=== PATIENT | female | born 1975 | race Asian ===

== ENCOUNTER 2016-03-28 09:53 | Emergency (ER) | payer OTHER ==
[~2016-03-28] VITALS: Ht 149.9 cm; Wt 69.9 kg
[~2016-03-28 09:53] MED LIST: ZOFRAN8 MG OR
[2016-03-28 10:26] LABS: PLATELET COUNT 248 K/uL (152-353)
[2016-03-28 10:46] LABS: SODIUM 132 mmol/L (136-145)
[2016-03-28] MEDS ORDERED: KETO10TA34 PO (11:02)
== END 2016-03-28 11:09 | disposition home or self-care (01) ==
LOC: ED 09:53
DX: M79.1 Myalgia (principal)
CPT/HCPCS: 36415; 80053; 81000; 85027; 87081; 87804; 87880; 99283

== ENCOUNTER 2016-08-19 05:45 | Emergency (ER) | payer OTHER ==
[~2016-08-19] VITALS: Ht 167.6 cm; Wt 81.6 kg
[~2016-08-19 05:45] MED LIST changes: +KETO10TA34 PO
== END 2016-08-19 06:52 | disposition home or self-care (01) ==
LOC: ED 05:45
DX: R11.2 Nausea with vomiting, unspecified (principal); R19.7 Diarrhea, unspecified
CPT/HCPCS: 99282

== ENCOUNTER 2016-12-01 05:05 | Emergency (ER) | payer OTHER ==
[~2016-12-01] VITALS: Ht 149.9 cm; Wt 68.0 kg
== END 2016-12-01 05:57 | disposition home or self-care (01) ==
LOC: ED 05:05
DX: M79.604 Pain in right leg (principal)
CPT/HCPCS: 99281

== ENCOUNTER 2018-04-22 11:10 | Emergency (ER) | payer OTHER ==
[~2018-04-22] VITALS: Ht 149.9 cm; Wt 61.2 kg
[2018-04-22 12:00] VITALS: BP 152/87; TEMP 98
== END 2018-04-22 12:00 | disposition home or self-care (01) ==
LOC: ED 11:10
DX: K52.9 Noninfective gastroenteritis and colitis, unspecified (principal)
CPT/HCPCS: 99282

== ENCOUNTER 2021-10-23 07:55 | Emergency (ER) | payer OTHER ==
[~2021-10-23] VITALS: Ht 149.9 cm; Wt 61.2 kg
[2021-10-23 07:55] VITALS: TEMP 98
[2021-10-23 08:40] VITALS: BP 148/82
== END 2021-10-23 08:40 | disposition home or self-care (01) ==
LOC: ED 07:55
DX: H00.014 Hordeolum externum left upper eyelid (principal); H01.004 Unspecified blepharitis left upper eyelid
CPT/HCPCS: 99283

== ENCOUNTER 2021-11-09 08:09 | Emergency (ER) | payer OTHER ==
[~2021-11-09] VITALS: Ht 149.9 cm; Wt 61.2 kg
[2021-11-09 08:34] LABS: PLATELET COUNT 253 K/uL (152-353)
[2021-11-09 08:42] LABS: POTASSIUM 3.8 mmol/L (3.6-5.2)
[2021-11-09 09:46] VITALS: BP 152/77; TEMP 97.5
== END 2021-11-09 09:47 | disposition home or self-care (01) ==
LOC: ED 08:09
PROVIDERS: Emergency Medicine
DX: J11.1 Influenza due to unidentified influenza virus with other respiratory manifestations (principal); F17.210 Nicotine dependence, cigarettes, uncomplicated; Z20.822 Contact with and (suspected) exposure to COVID-19
CPT/HCPCS: 80048; 84484; 85027; 87502; 87635; 93005; 96372; 99283; J1885; U0003

== ENCOUNTER 2021-11-09 15:22 | Emergency (ER) | payer OTHER ==
[~2021-11-09] VITALS: Ht 149.9 cm; Wt 61.2 kg
[2021-11-09 15:28] VITALS: TEMP 96.8
[2021-11-09 17:30] VITALS: BP 145/65
[2021-11-09 17:50] LABS: PLATELET COUNT 246 K/uL (152-353)
[2021-11-09 18:05] LABS: PARTIAL THROMBOPLASTIN TIME 25.1 SECONDS (24.5-33.6)
== END 2021-11-09 18:40 | disposition left against medical advice (07) ==
LOC: ED 15:22
PROVIDERS: Emergency Medicine
DX: K92.2 Gastrointestinal hemorrhage, unspecified (principal); Z53.29 Procedure and treatment not carried out because of patient's decision for other reasons
CPT/HCPCS: 82272; 85027; 85610; 85730; 99283

== ENCOUNTER 2021-12-18 08:04 | Emergency (ER) | payer OTHER ==
[~2021-12-18] VITALS: Ht 149.9 cm; Wt 61.2 kg
[2021-12-18 09:56] VITALS: BP 133/62; TEMP 98
== END 2021-12-18 09:57 | disposition home or self-care (01) ==
LOC: ED 08:04
DX: J10.1 Influenza due to other identified influenza virus with other respiratory manifestations (principal); Z20.822 Contact with and (suspected) exposure to COVID-19; F17.210 Nicotine dependence, cigarettes, uncomplicated
CPT/HCPCS: 87502; 87635; 87651; 99283; U0003

== ENCOUNTER 2022-04-28 05:03 | Emergency (ER) | payer OTHER ==
[~2022-04-28] VITALS: Ht 149.9 cm; Wt 61.2 kg
[2022-04-28 05:10] VITALS: TEMP 98
[2022-04-28 06:00] LABS: PLATELET COUNT 162 K/uL (152-353)
[2022-04-28 06:08] LABS: POTASSIUM 3.9 mmol/L (3.6-5.2)
[2022-04-28 07:22] VITALS: BP 146/86
== END 2022-04-28 07:22 | disposition home or self-care (01) ==
LOC: ED 05:03
PROVIDERS: Emergency Medicine
DX: K52.89 Other specified noninfective gastroenteritis and colitis (principal)
CPT/HCPCS: 36415; 80053; 81000; 81025; 85027; 96361; 96374; 96376; 99284; J2405